=== PATIENT | female | born 1935 | race Caucasian/White ===

== ENCOUNTER → 2023-05-30 14:25 | Outpatient (REF) | payer OTHER, SELFPAY | LOC: RAD 14:25 | PROVIDERS: ATTENDING PHYSICIAN Internal Medicine Hematology & Oncology; FAMILY PHYSICIAN Family Medicine | DX: C48.2 Malignant neoplasm of peritoneum, unspecified (principal); R22.43 Localized swelling, mass and lump, lower limb, bilateral | CPT/HCPCS: 71250; 74176 ==

== ENCOUNTER 2023-06-18 11:29 | Outpatient (RCR) | payer OTHER, SELFPAY ==
[2023-06-18 12:13] VITALS: BP 159/60
[2023-06-18 12:19] LABS: % Basophils 0.9 % (0-2); % Immature Granulocytes 0.4 % (0-0.5); % Lymphocytes 30.8 % (20.5-51.1); % Monocytes 8.3 % (1.7-9.3); % Neutrophils 55.6 % (42.2-75.2); Absolute Basophils 0.1 10^3/uL (0-0.2); Absolute Eosinophils 0.2 10^3/uL (0-0.7); Absolute Lymphocytes 1.6 10^3/uL (1.2-3.4); Absolute Monocytes 0.4 10^3/uL (0.1-0.6); Hematocrit 34.7 % (37.0-47.0); Hemoglobin 11.3 g/dL (12.0-16.0); Mean Corp Hgb Conc. 32.6 g/dL (33.0-37.0); Mean Corpuscular Hgb 32.3 pg (27.0-31.0); Mean Corpuscular Volume 99.1 fL (81.0-99.0); Mean Platelet Volume 9.9 fL (7.4-10.4); Nucleated Red Blood Cells % 0 %; Platelet Count 165 10^3/uL (130-400); Red Cell Dist. Width 13.2 % (11.5-14.5); White Blood Cell Count 5.3 10^3/uL (4.8-10.8)
[2023-06-18 12:46] LABS: ALT (SGPT) 20 U/L (0-35); AST (SGOT) 29 U/L (14-36); Albumin 3.3 g/dl (3.5-5.0); Alkaline Phosphatase 111 U/L (38-126); Blood Urea Nitrogen 22 mg/dl (7-17); Carbon Dioxide 25 mmol/L (22-30); Chloride 103 mmol/L (98-107); Glucose 89 mg/dl (70-99); Potassium 4.7 mmol/L (3.5-5.1); Sodium 132 mmol/L (135-145); Total Bilirubin 0.5 mg/dl (0.2-1.3); Total Protein 5.9 g/dl (6.3-8.2); eGFR 33.73
== END 2023-06-19 08:06 | disposition home or self-care (01) ==
LOC: OID 11:29
PROVIDERS: ATTENDING PHYSICIAN Internal Medicine Hematology & Oncology; FAMILY PHYSICIAN Family Medicine
DX: C48.2 Malignant neoplasm of peritoneum, unspecified (principal)
CPT/HCPCS: 36591; 80053; 85025

== ENCOUNTER 2023-08-13 10:41 | Outpatient (RCR) | payer OTHER, SELFPAY ==
[2023-08-13 11:00] VITALS: BP 122/60
[2023-08-13 12:00] LABS: % Basophils 0.8 % (0-2); % Eosinophils 5.6 % (0-6); % Immature Granulocytes 0.4 % (0-0.5); % Lymphocytes 26.3 % (20.5-51.1); % Monocytes 9.2 % (1.7-9.3); % Neutrophils 57.7 % (42.2-75.2); Absolute Eosinophils 0.3 10^3/uL (0-0.7); Absolute Lymphocytes 1.4 10^3/uL (1.2-3.4); Absolute Monocytes 0.5 10^3/uL (0.1-0.6); Absolute Neutrophils 3.1 10^3/uL (1.4-6.5); Hematocrit 33.2 % (37.0-47.0); Mean Corp Hgb Conc. 33.1 g/dL (33.0-37.0); Mean Corpuscular Hgb 31.9 pg (27.0-31.0); Mean Corpuscular Volume 96.2 fL (81.0-99.0); Mean Platelet Volume 10.3 fL (7.4-10.4); Nucleated Red Blood Cells % 0 %; Platelet Count 177 10^3/uL (130-400); Red Blood Cell Count 3.45 10^6/uL (4.20-5.40); Red Cell Dist. Width 12.1 % (11.5-14.5); White Blood Cell Count 5.3 10^3/uL (4.8-10.8)
[2023-08-13 12:17] LABS: ALT (SGPT) 13 U/L (0-35); AST (SGOT) 21 U/L (14-36); Albumin 3.3 g/dl (3.5-5.0); Alkaline Phosphatase 110 U/L (38-126); Blood Urea Nitrogen 23 mg/dl (7-17); Calcium 9.4 mg/dl (8.4-10.2); Carbon Dioxide 27 mmol/L (22-30); Chloride 98 mmol/L (98-107); Glucose 89 mg/dl (70-99); Potassium 4.3 mmol/L (3.5-5.1); Sodium 133 mmol/L (135-145); Total Bilirubin 0.3 mg/dl (0.2-1.3); Total Protein 5.9 g/dl (6.3-8.2); eGFR 19.19
[2023-08-13 20:58] LABS: CA 125 134 U/mL (0-35)
== END 2023-08-13 13:54 | disposition home or self-care (01) ==
LOC: OID 10:41
PROVIDERS: ATTENDING PHYSICIAN Internal Medicine Hematology & Oncology; FAMILY PHYSICIAN Family Medicine
DX: C48.2 Malignant neoplasm of peritoneum, unspecified (principal)
CPT/HCPCS: 36591; 80053; 85025; 86304

== ENCOUNTER → 2023-08-15 11:30 | Outpatient (REF) | payer OTHER, SELFPAY | LOC: RAD 11:30 | PROVIDERS: ATTENDING PHYSICIAN Internal Medicine Hematology & Oncology; FAMILY PHYSICIAN Family Medicine | DX: C48.2 Malignant neoplasm of peritoneum, unspecified (principal); R22.43 Localized swelling, mass and lump, lower limb, bilateral | CPT/HCPCS: 76775 ==

== ENCOUNTER → 2023-09-06 15:05 | Outpatient (REF) | payer OTHER, SELFPAY | LOC: RAD 15:05 | PROVIDERS: ATTENDING PHYSICIAN Surgery Vascular Surgery; FAMILY PHYSICIAN Family Medicine | DX: I73.9 Peripheral vascular disease, unspecified (principal) | CPT/HCPCS: 93922; 93925 ==

== ENCOUNTER 2023-09-26 10:39 | Outpatient (RCR) | payer OTHER, SELFPAY ==
[2023-09-26 11:00] VITALS: BP 129/55
[2023-09-26 11:57] LABS: Blood Urea Nitrogen 31 mg/dl (7-17); Calcium 9.6 mg/dl (8.4-10.2); Carbon Dioxide 26 mmol/L (22-30); Chloride 100 mmol/L (98-107); Glucose 90 mg/dl (70-99); Potassium 4.4 mmol/L (3.5-5.1); Sodium 134 mmol/L (135-145); eGFR 18.27
== END 2023-09-27 10:45 | disposition home or self-care (01) ==
LOC: OID 10:39
PROVIDERS: ATTENDING PHYSICIAN Internal Medicine Hematology & Oncology; FAMILY PHYSICIAN Family Medicine; OTHER PHYSICIAN Specialist
DX: C48.2 Malignant neoplasm of peritoneum, unspecified (principal)
CPT/HCPCS: 36591; 80048; 82565

== ENCOUNTER → 2023-10-23 14:08 | Outpatient (REF) | payer OTHER, SELFPAY | LOC: RAD 14:08 | PROVIDERS: ATTENDING PHYSICIAN Internal Medicine Hematology & Oncology; FAMILY PHYSICIAN Family Medicine | DX: C48.2 Malignant neoplasm of peritoneum, unspecified (principal); R22.43 Localized swelling, mass and lump, lower limb, bilateral | CPT/HCPCS: 71250; 74176 ==

== ENCOUNTER 2023-11-02 12:18 | Emergency (ER) | payer OTHER, SELFPAY ==
[2023-11-02 12:21] VITALS: BP 117/70
[2023-11-02 13:00] VITALS: BP 125/77
--- NOTE | 2023-11-02 13:09 | ED.GENMED ---
History of Present Illness
General
Chief Complaint: Abdominal Symptoms
Source: patient
Exam Limitations: none
Time Seen by Provider: 11/02/23 12:51
History of Present Illness
History of Present Illness:
88-year-old female presents with vomiting x 4 to 5 days. She denies significant abdominal pain. She cannot keep anything down. She is vomiting multiple times a day. She started to feel dehydrated. She has a history bowel obstruction requiring
resection. She has an ileostomy. She denies a fever or headache. No other complaints at this time
Past History
Past History
ED Past Medical History: Asthma, Cancer (ovarian), COPD, HTN and Other (UTI, Ureteral calculus)
ED Past Surgical History: Gynecological (BTL) and Orthopedic (right knee replacement.)
Social History
Tobacco: Former smoker
Alcohol: Occasional
Drug: None
Personal:
Living: with family
Phy Exam
Physical Exam
Physical Exam:
General: Well-appearing female no acute respiratory distress
HEENT: Normocephalic atraumatic mucosa dry posterior pharynx without erythema
Heart: Regular rate and rhythm no murmurs
Lungs: Clear no wheeze
Abdomen ostomy present with output in the bag. Mildly diffusely tender nondistended no guarding
Course
Orders/Labs/Results
Orders:
Orders
11/02/23 13:03
0.9% Sodium Chloride 1000 ml [Nss] 1,000 ml IV BOLUS
Ondansetron Injectable [Zofran] 4 mg IV NOW STA
11/02/23 13:08
CT Abd/pel Without Iv Or Oral Urgent
Comment:
Reason For Exam: vomiting
11/02/23 13:18
Complete Blood Count/With Diff Urgent
Comprehensive Metabolic Panel Urgent
Lipase Urgent
Abnormal Lab Results
11/02/23
13:18
RBC 3.60 L 10^6/uL
(4.20-5.40)
Hgb 11.3 L g/dL
(12.0-16.0)
Hct 34.3 L %
(37.0-47.0)
MCH 31.4 H pg
(27.0-31.0)
MCHC 32.9 L g/dL
(33.0-37.0)
MPV 10.6 H fL
(7.4-10.4)
Absolute Lymphs (auto) 1.1 L 10^3/uL
(1.2-3.4)
Lymphocytes % 19.0 L %
(20.5-51.1)
Sodium 129 L mmol/L
(135-145)
Chloride 96 L mmol/L
(98-107)
BUN 36 H mg/dl
(7-17)
Creatinine 2.7 H mg/dL
(0.6-1.0)
Total Protein 6.2 L g/dl
(6.3-8.2)
11/02/23 13:18
11/02/23 13:18
Vital Signs
Initial and Last Documented VS:
Initial Vital Signs
Temp Pulse Resp BP Pulse Ox
97.9 F 85 16 117/70 98
11/02/23 12:21 11/02/23 12:21 11/02/23 12:21 11/02/23 12:21 11/02/23 12:21
Last Documented Vital Signs
Temp Pulse Resp BP Pulse Ox
97.9 F 85 16 132/59 99
11/02/23 12:21 11/02/23 12:21 11/02/23 12:21 11/02/23 15:00 11/02/23 15:00
MDM/Problems Addressed
Differential Diagnosis Includes:
Vomiting x 4 days. Consider viral illness versus obstruction. Consider electrolyte abnormality.
Reviewed prior records. He was here a year ago and had hyponatremia. Will evaluate today for acute electrolyte abnormality secondary to the vomiting
Patient does have difficult surgical history of the abdomen puts her at risk for more bowel obstructions, CT of the abdomen pending
Will hydrate and treat with Zofran.
*Critical Care Note
Total Time (30-74mins, 75-104mins- exclusive of procedures): Not Applicable
Update Note
Update Note:
CT reviewed without any acute changes. There is a sightings in her abdomen this is chronic. There is a stable staghorn calculus in the right kidney. Patient not tolerating oral fluids. She does feel better after Zofran. Will send home on Zofran
for nausea.
ED Attending Note
-
Portions of this chart may have been created with voice recognition software.� Occasional wrong word or��sound alike� substitutions may have occurred due to the inherent limitations of voice recognition software.
Discharge Plan
Departure
Patient Disposition: Home (Routine Discharge)
Date of Disposition: 11/02/23
Time of Disposition: 16:29
Patient with high blood pressure during this ER visit?: No
Discharge Problem:
Vomiting
Instructions: Nausea and Vomiting, Adult (DC)
Prescriptions:
New
ondansetron 4 mg tablet,disintegrating
4 mg PO Q8H PRN (Reason: nausea and vomiting) Qty: 10 0RF
No Action
loperamide 2 MG capsule
2 mg PO QID PRN (Reason: Gastrointestinal issue)
Patient Comments:
ileostomy
Rx Instructions:
2 to 4 times a day
sodium bicarbonate 650 MG tablet
1,300 mg PO BID
cholecalciferol (vitamin D3) 2,000 UNITS tablet
2,000 units PO DAILY
multivitamin with folic acid [Tab-A-Jay] 1 TABLET tablet
1 tab PO QPM
loratadine 10 MG tablet
10 mg PO DAILY PRN (Reason: allergies)
acetaminophen [Tylenol Arthritis Pain] 650 MG tablet extended release
650 mg PO BID
prochlorperazine maleate 10 MG tablet
10 mg PO Q6H PRN (Reason: nausea/vomiting)
sodium chloride 1 GRAM tablet,soluble
0.5 g PO QID
doxycycline hyclate 200 mg Tablet,Delayed Release (Dr/Ec)
200 mg PO DAILY
pentoxifylline 400 mg Tablet Extended Release
400 mg PO TID
Probiotic 3 billion cell Capsule
3,000 mmu cells PO DAILY
Referrals:
Imani Orozco MD [Family Provider] -
Activity Restrictions/Additional Instructions:
Continue to drink plenty of fluids. Use Zofran if needed for nausea. Return if worse otherwise follow-up with your treating physicians
Interventions
Interventions:
*Risk Screen - Suicide Last Done: 11/02/23 12:21
*General Assessment Last Done: 11/02/23 12:21
*Neglect/Abuse Screening Last Done: 11/02/23 12:21
*ED COVID-19 Vaccine History Last Done: 11/02/23 12:38
PC-Dsghfh-Spmvnjkncj Assessment Last Done: 11/02/23 12:38
Discharge Date and Time
Print Language: KHMER
[2023-11-02] MEDS: ZOFRAN 4 MG IV (13:24)
[2023-11-02] MEDS: NSS 1000 IV (13:30)
[2023-11-02 13:34] LABS: % Basophils 0.5 % (0-2); % Eosinophils 0.7 % (0-6); % Immature Granulocytes 0.4 % (0-0.5); % Monocytes 8.7 % (1.7-9.3); % Neutrophils 70.7 % (42.2-75.2); Absolute Lymphocytes 1.1 10^3/uL (1.2-3.4); Absolute Monocytes 0.5 10^3/uL (0.1-0.6); Hematocrit 34.3 % (37.0-47.0); Hemoglobin 11.3 g/dL (12.0-16.0); Mean Corp Hgb Conc. 32.9 g/dL (33.0-37.0); Mean Corpuscular Hgb 31.4 pg (27.0-31.0); Mean Corpuscular Volume 95.3 fL (81.0-99.0); Mean Platelet Volume 10.6 fL (7.4-10.4); Nucleated Red Blood Cells % 0 %; Platelet Count 180 10^3/uL (130-400); Red Cell Dist. Width 13.3 % (11.5-14.5); White Blood Cell Count 5.6 10^3/uL (4.8-10.8)
[2023-11-02 13:53] LABS: ALT (SGPT) 11 U/L (0-35); AST (SGOT) 23 U/L (14-36); Albumin 3.7 g/dl (3.5-5.0); Alkaline Phosphatase 108 U/L (38-126); Blood Urea Nitrogen 36 mg/dl (7-17); Calcium 9.2 mg/dl (8.4-10.2); Carbon Dioxide 23 mmol/L (22-30); Chloride 96 mmol/L (98-107); Glucose 78 mg/dl (70-99); Lipase 78 U/L (23-300); Potassium 4.6 mmol/L (3.5-5.1); Sodium 129 mmol/L (135-145); Total Bilirubin 0.5 mg/dl (0.2-1.3); Total Protein 6.2 g/dl (6.3-8.2); eGFR 16.56
[2023-11-02 14:16] VITALS: BP 128/65
[2023-11-02 15:00] VITALS: BP 132/59
[2023-11-02 16:00] VITALS: BP 130/73
== END 2023-11-02 16:40 | disposition home or self-care (01) ==
LOC: EMR 12:18
PROVIDERS: Physician Assistant; EMERGENCY PHYSICIAN Emergency Medicine; FAMILY PHYSICIAN Family Medicine
DX: R11.10 Vomiting, unspecified (principal)
CPT/HCPCS: 99284; 96374; 96361 ×2; 74176; 80053; 83690; 85025

== ENCOUNTER 2023-11-12 15:45 | Inpatient (IN) | payer OTHER, SELFPAY ==
[2023-11-12 12:51] VITALS: BP 111/60
--- NOTE | 2023-11-12 13:35 | ED.GENMED ---
History of Present Illness
General
Chief Complaint: Weakness
Source: patient
Time Seen by Provider: 11/12/23 13:34
History of Present Illness
History of Present Illness:
This patient is an 88-year-old female presents emergency department with fatigue, malaise, and generally does not feeling well. Patient has a history of ovarian/peritoneal cancer, chronic metabolic acidosis, and has experienced SIADH associated
hyponatremia in the past. She states that for the past week or so she 'cannot keep anything down' described as intermittent episodes of nonbloody vomiting associated with hunger but just not wanting to eat. She notes ostomy output but less than
usual given her reduced intake. She denies fever, chills, chest pain, shortness of breath, urinary symptoms, abdominal pain, or other complaints
Past History
Past History
ED Past Medical History: Asthma, Cancer (ovarian), COPD, HTN and Other (UTI, Ureteral calculus)
ED Past Surgical History: Gynecological (BTL) and Orthopedic (right knee replacement.)
Social History
Tobacco: Former smoker
Alcohol: Occasional
Drug: None
Personal:
Living: with family
Phy Exam
Physical Exam
Physical Exam:
GENERAL: Alert , in no apparent distress, thin slightly tired appearing
EYE: pupils equal and reactive
NECK: Supple, no significant adenopathy.
ENT: o/p clr, mm dry
CARDIAC: Regular rate and rhythm .
LUNGS: Equal breath sounds bilaterally, no acute respiratory distress, no rales or rhonchi, occasional wheeze noted
ABDOMEN: Soft, without focal tenderness, no r/g, no cvat, ostomy output noted
NEUROLOGICAL: Alert and oriented, no focal neuro deficits
SKIN: Warm and dry, skin intact.
MUSCULOSKELETAL: 2+ bilateral lower extremity edema, well perfused.
PSYCH: Normal and appropriate interaction.
Course
Orders/Labs/Results
Orders:
Orders
11/12/23 13:55
CR Obstruct Series W/pa Chest Urgent
Comment:
Reason For Exam: vomiting, hx peritoneal ca
11/12/23 14:22
0.9% Sodium Chloride 250 ml [Nss] 250 ml IV BOLUS
11/12/23 14:24
ECG [Electrocardiogram (*1)] Stat
Reason for Study: Other
Other Reason for Exam: vomiting
EKG- Treatment ONCE
11/12/23 14:45
Cortisol, Random Stat
Serum Osmolality Urgent
TSH Urgent
11/12/23 Dinner
Regular
At Your Request: Full Participation
0.9% Sodium Chloride 1000 ml [Nss] 1,000 ml IV 100 mls/hr
11/12/23 15:22
ONCOLOGY CONSULT Routine
Consulting Provider: Kate Smith
Was physician already notified: Yes
Reason for consult: metastatic peritoneal carcinoma
11/12/23 15:31
Admit/Transfer Patient As Directed
Co-Sign Provider:
Level of Care: Inpatient admission
Assign to:: Medical/Surgical
Physician / Group: Cholo
Diagnosis: JESSICA, hyponatremia
Reason for Hospitalization: JESSICA, hyponatremia
Expected length of stay greater than two midnights?: Yes
ELOS- Estimated Length of Stay in days: 4
I certify the patient meets the requirements for IP care: Yes
11/12/23 15:33
Code Status As Directed
Resuscitation Status: Full Code
11/12/23 15:55
Osmolality, Random Urine Urgent
Date Specimen was Collected: 11/12/23
Time Specimen was Collected: 13:46
Urine Sodium Urgent
Date Specimen was Collected: 11/12/23
Time Specimen was Collected: 13:46
11/12/23 17:59
Acetaminophen [Tylenol] 650 mg PO Q4HPRN PRN
Bisacodyl [Dulcolax] 10 mg RECTAL [id number] PRN
Docusate W/Senna [Senokot-S] 1 tablet PO BIDPRN PRN
HYDROmorphone [Dilaudid] 0.5 mg IV Q4HPRN PRN
Loperamide [Imodium] 2 mg PO TID
Loratadine [Claritin] 10 mg PO DAILYPRN PRN
Ondansetron Injectable [Zofran] 4 mg IV Q6HPRN PRN
Oxycodone [Roxicodone] 5 mg PO Q4HPRN PRN
Pentoxifylline [Trental] 400 mg PO TID
Polyethylene Glycol Powder [Miralax] 17 grams PO DAILYPRN PRN
11/12/23 17:59
Activity As Directed
Activity Level: With Assistance
Intake/ Output As Directed
Frequency: Per unit guidelines
Vital Signs As Directed
Frequency: Per unit guidelines
Weight As Directed
Frequency: Daily
DX Deep Vein Thrombosis Video Routine
11/12/23 18:00
Multivitamin [Theragran] 1 tablet PO QPM
Sodium Chloride 0.5 gram PO QID
11/12/23 20:00
Heparin 5,000 units SC Q12
Sodium Bicarbonate 650 mg PO BID
11/13/23 00:00
Acetaminophen [Tylenol] 650 mg PO Q6
11/13/23 06:18
Basic Metabolic Panel IN AM
11/13/23 08:00
Cholecalciferol (Vitamin D3) [VITAMIN D3 (cholecalciferol)] 25 mcg PO DAILY
Lactobac/Bifidobac [Visbiome] 1 cap PO DAILY
Vital Signs
Initial and Last Documented VS:
Initial Vital Signs
Temp Pulse Resp BP Pulse Ox
97.1 F 75 19 111/60 98
11/12/23 12:51 11/12/23 12:51 11/12/23 12:51 11/12/23 12:51 11/12/23 12:51
Last Documented Vital Signs
Temp Pulse Resp BP Pulse Ox
98 F 76 18 138/66 100
11/15/23 15:23 11/15/23 15:23 11/15/23 15:23 11/15/23 15:23 11/15/23 15:23
*Critical Care Note
Total Time (30-74mins, 75-104mins- exclusive of procedures): Not Applicable
Update Note
Update Note:
Patient presents to the Emergency Department with fatigue, malaise, vomiting
Number and Complexity of Problems Addressed at the Encounter
� Chronic conditions affecting care:
� Acute Exacerbation and/or Progression of Chronic Illness:
� Differential Diagnosis includes: But not limited to dehydration, bowel obstruction, progression of cancer, electrolyte disorder, viral illness, etc. etc.
Amount and/or Complexity of Data to be Reviewed and Analyzed
� I performed an independent evaluation of and my interpretation is:
EKG:
CT:
Xrays:
Laboratory Studies: Sodium noted to be reduced at 127, was 129 last testing and then 133 before that. Increasing renal dysfunction suspect prerenal component with BUN/creatinine 44 and 3 anemia at baseline urine sodium and Osmo
pending
Other:
� Review of other/old records reveals: Progression of peritoneal carcinomatosis characterized by increasing ascites and a large intraperitoneal metastatic deposits.
Stable severe bilateral hydronephrosis. Stable right staghorn calculus.
Electronically signed by Nahum Cobian, 11/02/2023 2:12 PM
� Clinical information was obtained by an independent historian:tt call in by Arielle Barrett: Millicent Lucia 1935 history of metastatic primary peritoneal carcinoma
Last seen in ER 11/01 with intractable nausea/vomiting. CT abdomen/pelvis done with slight progression of disease. Fluids and zofran given then discharged.
Seen in [facility] today for labs with worsening symptoms. Taking zofran. Very weak and unstable. Lives alone. Hypotensive 97/51 and HR 69. Weight loss of 5-7lbs since 11/01.
CBC, CMP drawn results pending.
� Prescriptions/Medications Considered but not given:
� Further testing considered but not performed:
Risk of Complications and/or Morbidity or Mortality of Patient Management
� Social determinants of health affecting care:
� Discussion with other providers (PCP, Hospitalists, Consultants, etc):
� Escalation of care including admission/observation vs risk of discharge considered: Case discussed with nephrology, Dr. levi, aware of history, labs, prior history of SIADH with hypovolemia� Recommends normal saline for now.
Aware patient will be admitted.
ED Attending Note
-
Portions of this chart may have been created with voice recognition software.� Occasional wrong word or��sound alike� substitutions may have occurred due to the inherent limitations of voice recognition software.
Discharge Plan
Departure
Patient Disposition: Admit
Date of Disposition: 11/12/23
Time of Disposition: 14:26
Admit to: Telemetry
Presentation/result/management discussed w/ accepting MD/DO: Hospitalist
Condition: Fair
Discharge Problem:
Acute hyponatremia
Interventions
Interventions:
*Risk Screen - Suicide Last Done: 11/12/23 12:51
*General Assessment Last Done: 11/12/23 12:51
*Neglect/Abuse Screening Last Done: 11/12/23 12:51
ED- Fall Risk Assessment Last Done: 11/12/23 15:59
*ED COVID-19 Vaccine History Last Done: 11/12/23 18:27
*Nursing Disposition Last Done: 11/12/23 18:02
ED- Cardiac Assessment Last Done: 11/12/23 15:59
ED- Neurological Assessment Last Done: 11/12/23 15:59
ED- Pulmonary Assessment Last Done: 11/12/23 15:59
Discharge Date and Time
Discharge Date/Time: 11/12/23 18:02
[2023-11-12] MEDS: NSS 250 IV (14:48)
[2023-11-12 14:50] VITALS: BP 133/79
[2023-11-12 14:56] VITALS: BMI 22.0
[2023-11-12 15:00] VITALS: BP 129/64
--- NOTE | 2023-11-12 15:01 | HPS.HSE ---
Addendum entered and electronically signed by Galo Emmanuel MD 11/12/23 15:39:
Severe protein calorie malnutrition
Serum Osmo normal at 285. Urine osmolality and urine sodium are pending.
Original Note:
Family Physician
-
Family Physician: Imani Orozoc
Chief Complaint
-
Weakness
History of Present Illness
88 y/o F with PMHx:
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
Interstitial fibrosis
Osteoarthritis
Coronary artery disease
Metastatic primary peritoneal carcinoma
who p/w CC weakness. Patient was in the outpatient infusion center today for evaluation. She reported that she has had nearly a week of nausea and vomiting. She has been unable to eat or keep anything down. Denies any hematemesis or
coffee-ground emesis. Reports weight loss of 5 to 7 pounds over the last 10 days. Reports occasional abdominal discomfort. Denies chest pain, shortness of breath, dysuria, focal neurological deficit. She offers no other acute complaints.
Medical History
Past Medical History
Past Medical History: Reports Other (as per HPI)
Past Surgical History: Reports Other (N/A)
Social History
Tobacco: Former Smoker
Alcohol: Occasional
Drug: None
Family History
Family History: Not pertinent
Allergies / Home Medications
Allergies reflects when Allergies were last updated in [facility].
Home Medications with original date entered in [facility]
Allergy/Medication List:
Allergies
Allergy/AdvReac Type Severity Reaction Status Date / Time
adhesive Allergy Itching Verified 11/12/23 12:56
aspirin Allergy Anaphylaxis Verified 11/12/23 12:56
Iodinated Contrast Media Allergy CAUSED Verified 11/12/23 12:56
RENAL
INSUFFICIENCY
pollen extracts Allergy Shortness Verified 11/12/23 12:56
of Breath
sulfamethoxazole Allergy Nausea / Verified 11/12/23 12:56
Vomiting
Home Medications
loperamide 2 mg capsule 2 mg PO TID 10/12/19
sodium bicarbonate 650 mg tablet 650 mg PO BID Electrolyte Repletion 12/19/19
cholecalciferol (vitamin D3) 50 mcg (2,000 unit) tablet 1,000 units PO DAILY Supplement 03/23/20
multivitamin with folic acid 400 mcg tablet (Tab-A-Jay) 1 tab PO QPM Supplement 03/23/20
loratadine 10 mg tablet 10 mg PO DAILYPRN PRN allergies 11/02/20
acetaminophen 650 mg tablet,extended release (Tylenol Arthritis Pain) 650 mg PO BID 03/22/21
sodium chloride 1,000 mg soluble tablet 0.5 g PO QID 10/04/21
lactobacillus combination no.4 3 billion cell capsule (Probiotic) 3,000 mmu cells PO DAILY 08/13/23
pentoxifylline 400 mg tablet,extended release 400 mg PO TID 08/13/23
ondansetron 4 mg disintegrating tablet 4 mg PO Q8HPRN PRN nausea and vomiting 11/12/23
Review of Systems
-
History Source: Patient
A 12 point ROS was completed and negative except as noted: Yes
Physical Exam
Vital Signs
Vital Signs
Temp Pulse Resp BP Pulse Ox
97.1 F 75 19 111/60 98
11/12/23 12:51 11/12/23 12:51 11/12/23 12:51 11/12/23 12:51 11/12/23 12:51
Physical Exam
General: Other (.)
Impression/Plan
-
Gen: NAD, AAOx3, appears chronically ill malnourished.
Eyes: EOMI, PERRLA, no scleral icterus.
Neck: supple.
CV: RRR, +S1/S2, no m/r/g.
Resp: CTAB, no rales, wheezes, or rhonchi.
Abd: +BS, soft, NT, ND
Skin: No rashes.
Neuro: CN 2-12 intact, non-focal.
Psych: Normal mood and affect.
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
-with acute on chronic hyponatremia due to SIADH as well as prerenal azotemia/volume depletion
-baseline Cr 2.4-2.7
-NS @ 100cc/hr
-trend Cr/Na
Metastatic ovarian cancer with peritoneal carcinomatosis:
-recent CT A/P with progression of disease
-currently not on cancer directed therapy
-pt was to meet with oncology to discuss goals of care 11/13/23
Other, inactive problems:
Interstitial fibrosis
Osteoarthritis
Coronary artery disease
FULL code - confirmed with the pt in the ER
Heparin
[2023-11-12 15:14] LABS: Osmolality Serum 285 mOsm/kg (275-300)
[2023-11-12 15:52] LABS: Cortisol, Random 15.2 ug/dl; TSH 1.81 uIU/ml (0.47-4.68)
[2023-11-12 16:03] LABS: Osmolality Urine 426 mOsm/kg (300-900)
[2023-11-12 16:36] LABS: Urine Sodium < 5 mmol/L (30-90)
[2023-11-12 17:00] VITALS: BP 127/69
[2023-11-12] MEDS: NSS 1000 IV (17:18)
[2023-11-12] MEDS: FLUSH (NSS) 1 FLUSH IV (17:19)
[2023-11-12 18:18] VITALS: BP 128/68
[2023-11-12 18:20] VITALS: BMI 21.5
[2023-11-12] MEDS: TRENTAL 400 MG PO ×2 (18:24→21:59)
[2023-11-12] MEDS: IMODIUM 2 MG PO ×2 (18:24→21:59)
[2023-11-12] MEDS: THERAGRAN 1 TABLET PO (18:24)
[2023-11-12] MEDS: SODIUM CHLORIDE 0.5 GRAM PO ×2 (18:34→22:03)
--- NOTE | 2023-11-12 18:38 | PTCARENOTE ---
pt presents from ED via stretcher. pt is AAO*3, Vss, room air. pt denies any pain. pt c/o nausea no active vomiting. pt states she hasn't had anything to eat. pt is oriented to the room. call reyes within the reach. plan of care ongoing.
[2023-11-12] MEDS: HEPARIN 5000 UNITS SC (19:47)
[2023-11-12] MEDS: SODIUM BICARBONATE 650 MG PO (19:47)
[2023-11-12] MEDS: ZOFRAN 4 MG IV (19:59)
[2023-11-12] MEDS: FLUSH (NSS) 2 FLUSH IV (20:00)
[2023-11-12 23:03] VITALS: BP 146/67
[2023-11-13] MEDS: NSS 1000 IV ×3 (01:53→22:00)
[2023-11-13] MEDS: ANESTHETIC LOZENGE 1 LOZENGE PO (02:35)
[2023-11-13] MEDS: ZOFRAN 4 MG IV ×2 (04:06→15:16)
[2023-11-13] MEDS: FLUSH (NSS) 2 FLUSH IV (04:08)
[2023-11-13 06:00] VITALS: BMI 21.9
[2023-11-13 06:52] LABS: Blood Urea Nitrogen 41 mg/dl (7-17); Calcium 8.9 mg/dl (8.4-10.2); Carbon Dioxide 20 mmol/L (22-30); Chloride 100 mmol/L (98-107); Estimated Creatinine Clearance 12 ml/min; Glucose 74 mg/dl (70-99); Potassium 4.2 mmol/L (3.5-5.1); Sodium 129 mmol/L (135-145); eGFR 15.85
[2023-11-13 07:00] VITALS: BP 123/62
[2023-11-13] MEDS: IMODIUM 2 MG PO (08:23)
[2023-11-13] MEDS: VITAMIN D3 (cholecalciferol) 25 MCG PO (08:24)
[2023-11-13] MEDS: TRENTAL 400 MG PO (08:24)
[2023-11-13] MEDS: SODIUM BICARBONATE 650 MG PO (08:24)
[2023-11-13] MEDS: SODIUM CHLORIDE 0.5 GRAM PO (08:24)
[2023-11-13] MEDS: VISBIOME 1 CAP PO (08:25)
[2023-11-13] MEDS: HEPARIN 5000 UNITS SC ×2 (08:26→19:53)
--- NOTE | 2023-11-13 11:08 | W.PN.HOSP.TC ---
Today's Communication/Plan
-
see A/P
Assessment / Plan
Assessment / Plan
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
Patient was in the outpatient infusion center for evaluation. She reported that she has had nearly a week of nausea and vomiting. She has been unable to eat or keep anything down. Denies any hematemesis or coffee-ground emesis. Reports weight
loss of 5 to 7 pounds over the last 10 days. Reports occasional abdominal discomfort. Denies chest pain, shortness of breath, dysuria, focal neurological deficit. She offers no other acute complaints.
A/P
# N/V, loss of appetite, poor PO intake likely due to clinical deconditioning from metastatic ovarian cancer with peritoneal carcinomatosis:
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
# Acute on chronic hyponatremia due to SIADH as well as prerenal azotemia/volume depletion
SCr today at 2.8 from 3.1 on admission ; baseline Cr 2.4-2.7
Sodium level 129 today from 127 on admission
Cont NSS @ 100cc/hr
trend Cr/Na
Cont regular as tolerated
# Metastatic ovarian cancer with peritoneal carcinomatosis:
recent CT A/P with progression of disease
currently not on cancer directed therapy
pt was to meet with oncology to discuss goals of care 11/13/23
Onc consulted, [facility] discussion ongoing
Other, inactive problems:
Interstitial fibrosis
Osteoarthritis
Coronary artery disease
FULL code - confirmed with the pt in the ER
Heparin
Anticipated Discharge: 24 - 48 hours
Subjective/Interval History
-
Date of Service: November 13, 2023
Objective Data
-
Labs:
Laboratory Results
11/13/23
06:18
Sodium 129 L
Potassium 4.2
Chloride 100
Carbon Dioxide 20 L
BUN 41 H
Creatinine 2.8 H
Glucose 74
Calcium 8.9
Vital Signs:
Vital Signs
Temp Pulse Resp BP Pulse Ox
36.4 C 79 16 123/62 98
11/13/23 07:00 11/13/23 07:00 11/13/23 07:00 11/13/23 07:00 11/13/23 07:00
I&O
11/12/23 11/13/23 11/14/23
06:59 06:59 06:59
Intake Total 1500 / 1500
Output Total 235 / 235
Balance 1265 / 1265
Review of Systems
-
Abdomen/GI: Reports Nausea and Vomiting
Physical Exam
-
General: Well Developed, No Apparent Distress, Comfortable and Appears Chronically Ill
Respiratory: Clear to Auscultation and Non Labored Respirations; Negative Accessory Resp Muscle Use
Cardiac: Regular Rhythm and S1/S2; Negative Murmur or Rub
GI: Soft, Nontender, Nondistended and Normal Bowel Sounds
Rectal: Deferred by Provider
Neuro: Awake and Alert
Psych: Calm and Intact Judgement/Insight
Data Reviewed
-
Labs: Labs Reviewed by me
--- NOTE | 2023-11-13 12:02 | CON.ONC ---
Impression
Impression
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
nausea, poor po intake
weakness
hyponatremia
Plan
Plan
Discussed recent (10/22/23, 11/02/23) CT findings c/w disease progression, which most likely explains her symptoms
Agree w/ antiemetics, diet as tolerated
Discussed goals of care, she's unsure she would consider any further chemo, but would like to discuss options with Dr. Grande
Will follow along
Patient History
History of Present Illness
Millicent is an 88 yo w/ h/o primary peritoneal carcinoma, known to Dr Grande. She received chemo last in summer 2022, and has been on observation since then. She underwent restaging CT scans on 10/23/23, which showed disease progression, and she was
scheduled to see Dr. Grande next week in f/u. She was seen in the ER on 11/01 w/ vomiting, repeat scans showed further disease progression. She was given Zofran and sent home. She was seen yesterday in [facility] for port flush, was weak and with continued
poor po intake, weight loss, nausea, and was sent to the ER, then admitted. Plain films showed no obstruction, labs noted for hyponatremia, creatinine of 3.1.
She denies abd pain or change in ostomy output
Past-Medical/Surgical History
PMH/PSH - as per the hpi, colon resection related to cancer, with ileotomy, COPD
SH: lives alone in a house, family/friends nearby, has an aide weekly, former smoker
FH: N/C
Patient Medication
�Medication �Instructions �Recorded �Confirmed �Last Taken �Type
loperamide 2 mg capsule 2 mg PO TID Gastrointestinal Issue 10/12/19 11/12/23 09/26/23 History
sodium bicarbonate 650 mg tablet 650 mg PO BID Electrolyte Repletion 12/19/19 11/12/23 11/12/23 History
cholecalciferol (vitamin D3) 50 1,000 units PO DAILY Supplement 03/23/20 11/12/23 09/26/23 History
mcg (2,000 unit) tablet
multivitamin with folic acid 400 1 tab PO QPM Supplement 03/23/20 11/12/23 09/25/23 History
mcg tablet (Tab-A-Jay)
loratadine 10 mg tablet 10 mg PO DAILYPRN PRN allergies 11/02/20 11/12/23 09/26/23 History
acetaminophen 650 mg 650 mg PO BID Pain 03/22/21 11/12/23 09/26/23 History
tablet,extended release (Tylenol
Arthritis Pain)
sodium chloride 1,000 mg soluble 0.5 g PO QID Electrolyte Repletion 10/04/21 11/12/23 11/12/23 History
tablet
lactobacillus combination no.4 3 3,000 mmu cells PO DAILY 08/13/23 11/12/23 09/26/23 History
billion cell capsule (Probiotic)
pentoxifylline 400 mg 400 mg PO TID 08/13/23 11/12/23 09/26/23 History
tablet,extended release
ondansetron 4 mg disintegrating 4 mg PO Q8HPRN PRN nausea and 11/12/23 11/12/23 Unknown History
tablet vomiting
Active Medications
Generic Name Dose Route Start Last Admin
Trade Name Freq PRN Reason Stop Dose Admin
Acetaminophen 650 mg 11/13/23 00:00 11/13/23 05:30
Acetaminophen 325 Mg Tablet PO 12/11/23 00:00 Not Given
Q6 SARAH BETH
Acetaminophen 650 mg 11/12/23 17:59
Acetaminophen 325 Mg Tablet PO 12/10/23 17:58
Q4HPRN PRN
mild pain/BENJAMIN/temp> 100.4F
Benzocaine/Menthol 1 lozenge 11/13/23 02:09 11/13/23 02:35
Benzocaine/Menthol Lozenge PO 12/11/23 02:08 1 lozenge
Q4HPRN PRN Administration
sore throat
Bisacodyl 10 mg 11/12/23 17:59
Bisacodyl 10 Mg Rectal Suppository RECTAL 12/10/23 17:58
[id number] PRN
constipation
Cholecalciferol 25 mcg 11/13/23 08:00 11/13/23 08:24
Cholecalciferol (Vitamin D3) 25 Mcg Tablet (1,000 Units) PO 12/11/23 07:59 25 mcg
DAILY SARAH BETH Administration
Heparin Sodium 5,000 units 11/12/23 20:00 11/13/23 08:26
Heparin 5,000 Units/Ml 1 Ml Vial SC 12/10/23 19:59 5,000 units
Q12 SARAH BETH Administration
Hydromorphone HCl 0.5 mg 11/12/23 17:59
Hydromorphone 0.5 Mg/0.5 Ml Syringe IV 11/26/23 17:58
Q4HPRN PRN
severe pain
Sodium Chloride 1,000 mls @ 100 mls/hr 11/12/23 15:00 11/13/23 01:53
Nss IV 1,000 mls
.Q10H SARAH BETH Administration
Lactobacillus/Bifidobacterium 1 cap 11/13/23 08:00 11/13/23 08:25
Lactobac/Bifidobac (Visbiome) PO 12/11/23 07:59 1 cap
DAILY SARAH BETH Administration
Loperamide HCl 2 mg 11/12/23 17:59 11/13/23 08:23
Loperamide 2 Mg Capsule PO 12/10/23 17:58 2 mg
TID SARAH BETH Administration
Loratadine 10 mg 11/12/23 17:59
Loratadine 10 Mg Tablet PO 12/10/23 17:58
DAILYPRN PRN
allergies
Multivitamins Therapeutic 1 tablet 11/12/23 18:00 11/12/23 18:24
Multivitamin Tablet PO 12/10/23 17:59 1 tablet
QPM SARAH BETH Administration
Ondansetron HCl 4 mg 11/12/23 17:59 11/13/23 04:06
Ondansetron 4 Mg/2 Ml Vial IV 12/10/23 17:58 4 mg
Q6HPRN PRN Administration
nausea and vomiting
Oxycodone HCl 5 mg 11/12/23 17:59
Oxycodone 5 Mg Regular Release Tablet PO 11/26/23 17:58
Q4HPRN PRN
moderate pain
Pentoxifylline 400 mg 11/12/23 17:59 11/13/23 08:24
Pentoxifylline 400 Mg Tablet PO 12/10/23 17:58 400 mg
TID SARAH BETH Administration
Polyethylene Glycol 17 grams 11/12/23 17:59
Polyethylene Glycol Powder 17 Grams Packet PO 12/10/23 17:58
DAILYPRN PRN
constipation
Senna/Docusate Sodium 1 tablet 11/12/23 17:59
Docusate W/Senna (Aishwarya-Colace) Tablet PO 12/10/23 17:58
BIDPRN PRN
constipation
Sodium Bicarbonate 650 mg 11/12/23 20:00 11/13/23 08:24
Sodium Bicarbonate 650 Mg Tablet PO 12/10/23 19:59 650 mg
BID SARAH BETH Administration
Sodium Chloride 0 flush 11/12/23 17:00 11/13/23 04:08
Sodium Chloride 0.9% (Flush) Syringe IV 12/10/23 16:59 2 flush
PER PROTOCOL SARAH BETH Administration
Sodium Chloride 0.5 gram 11/12/23 18:00 11/13/23 08:24
Sodium Chloride 1 Gram Tablet PO 12/10/23 17:59 0.5 gram
QID SARAH BETH Administration
Review of Systems
-
History Source: Patient
All Other Systems: Not reviewed unless documented
Constitutional: Reports Weight Loss
Physical Exam
-
General: No Apparent Distress and Conversant; Negative Well Developed or Well Nourished
HEENT: Negative Jaundice
Cardiology: Normal Sinus Rhythm
Pulmonary: Clear
GI: Soft, Distended and Other (ileostomy)
Musculoskeletal: No Clubbing and No Cyanosis
Extremities: Edema (trace, ankle)
Neurology: Non Focal
Skin: Warm and Dry
Psych: Calm and Intact Judgement/Insight
Labs
Lab Results
Creatinine 2.8 mg/dL (0.6-1.0) H 11/13/23 06:18
Vital Signs
Vital Signs
Temp Pulse Resp BP Pulse Ox
97.6 F 79 16 123/62 98
11/13/23 07:00 11/13/23 07:00 11/13/23 07:00 11/13/23 07:00 11/13/23 07:00
[2023-11-13 15:05] VITALS: BP 113/49
[2023-11-13] MEDS: SODIUM CHLORIDE PO (15:35)
--- NOTE | 2023-11-13 16:18 | CM ---
Alert awake oriented patient who lives alone in a 1 story home with 3 step to enter and bed and bathroom on first floor. She is independent in all activities of daily living.She does not drive .She was offered VN she said she may want Hospice.No
hospice cx ordered..
[facility] hx / No SNF history
Pharmacy [facility] [address]
PCP DR Graves
PLAN Will need to follow course of care
[2023-11-13] MEDS: TRENTAL PO ×2 (16:27→22:00)
[2023-11-13] MEDS: IMODIUM PO (16:28)
[2023-11-13 23:02] VITALS: BP 136/71
--- NOTE | 2023-11-14 02:58 | DOWNTIME ---
There was a [employer] Client Acid Supervisor Downtime on 11/14/2023 from 0100 to 11/14/2023 at 0255. Downtime documentation of patient's care, including medication administrations, has been reconciled in the electronic record per guidelines. Refer to the
patient's paper chart under the miscellaneous tab to see printed paper medication records and downtime forms.
[2023-11-14] MEDS: ZOFRAN 4 MG IV ×2 (04:38→16:40)
[2023-11-14 06:00] VITALS: BMI 22.8
[2023-11-14 06:10] LABS: Hematocrit 32.1 % (37.0-47.0); Mean Corp Hgb Conc. 34.3 g/dL (33.0-37.0); Mean Corpuscular Hgb 31.3 pg (27.0-31.0); Mean Corpuscular Volume 91.5 fL (81.0-99.0); Platelet Count 162 10^3/uL (130-400); Red Blood Cell Count 3.51 10^6/uL (4.20-5.40); Red Cell Dist. Width 13.6 % (11.5-14.5); White Blood Cell Count 4.2 10^3/uL (4.8-10.8)
[2023-11-14 06:40] LABS: Blood Urea Nitrogen 36 mg/dl (7-17); Calcium 8.8 mg/dl (8.4-10.2); Carbon Dioxide 17 mmol/L (22-30); Chloride 103 mmol/L (98-107); Estimated Creatinine Clearance 13 ml/min; Glucose 76 mg/dl (70-99); Magnesium 1.7 mg/dl (1.6-2.3); Potassium 4.2 mmol/L (3.5-5.1); Sodium 131 mmol/L (135-145); eGFR 18.16
[2023-11-14 07:22] VITALS: BP 131/102
[2023-11-14] MEDS: NSS 1000 IV (08:29)
[2023-11-14] MEDS: HEPARIN 5000 UNITS SC ×2 (08:29→20:52)
[2023-11-14] MEDS: TRENTAL 400 MG PO (08:30)
--- NOTE | 2023-11-14 09:17 | W.PN.HOSP.TC ---
Today's Communication/Plan
-
see AP
GOC/hospice discission ongoing
Assessment / Plan
Assessment / Plan
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
Patient was in the outpatient infusion center for evaluation. She reported that she has had nearly a week of nausea and vomiting. She has been unable to eat or keep anything down. Denies any hematemesis or coffee-ground emesis. Reports weight
loss of 5 to 7 pounds over the last 10 days. Reports occasional abdominal discomfort. Denies chest pain, shortness of breath, dysuria, focal neurological deficit. She offers no other acute complaints.
A/P
# N/V, loss of appetite, poor PO intake likely due to clinical deconditioning from metastatic ovarian cancer with peritoneal carcinomatosis:
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
# Acute on chronic hyponatremia due to SIADH as well as prerenal azotemia/volume depletion
SCr today at 2.5 from 3.1 on admission; baseline Cr 2.4 - 2.7
Sodium level 131 today from 127 on admission
DC further IVF
trend Cr/Na
Cont regular as tolerated
# Metastatic ovarian cancer with peritoneal carcinomatosis:
recent CT A/P with progression of disease
currently not on cancer directed therapy
Onc on board
I discussed GOC with family. Jose Mackey would like to discuss hospice care and receive additional information.
Hospice CS placed
Other, inactive problems:
Interstitial fibrosis
Osteoarthritis
Coronary artery disease
code: DNR DNI, confirmed with son
DVT ppx: Heparin SQ
DW son Narendra on the phone
Anticipated Discharge: 24 - 48 hours
Subjective/Interval History
-
Date of Service: November 14, 2023
Objective Data
-
Labs:
Laboratory Results
11/14/23
05:59
WBC 4.2 L
Hgb 11.0 L
Hct 32.1 L
Plt Count 162
Sodium 131 L
Potassium 4.2
Chloride 103
Carbon Dioxide 17 L
BUN 36 H
Creatinine 2.5 H
Glucose 76
Calcium 8.8
Vital Signs:
Vital Signs
Temp Pulse Resp BP Pulse Ox
37.9 C 78 20 131/102 98
11/14/23 07:22 11/14/23 07:22 11/14/23 07:22 11/14/23 07:22 11/14/23 07:22
I&O
11/13/23 11/14/23 11/15/23
06:59 06:59 06:59
Intake Total 1500 / 1500 240 / 240
Output Total 235 / 235
Balance 1265 / 1265 240 / 240
Review of Systems
-
Unable to obtain full review of systems at this time due to: Other (forgetful)
Physical Exam
-
General: Well Developed, No Apparent Distress, Comfortable, Conversant and Appears Chronically Ill
Respiratory: Clear to Auscultation and Non Labored Respirations; Negative Accessory Resp Muscle Use
Cardiac: Regular Rhythm and S1/S2; Negative Murmur or Rub
GI: Soft and Nontender
Rectal: Deferred by Provider
Neuro: Awake and Alert
Psych: Calm; Negative Intact Judgement/Insight
Data Reviewed
-
Labs: Labs Reviewed by me
--- NOTE | 2023-11-14 09:22 | W.PN.ONC2 ---
Today's Communication / Plan
-
DNR and hospice evaluation for home hospice.
Impression
Impression
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
nausea, poor po intake
weakness
hyponatremia
Plan
Plan
Discussed recent (10/22/23, 11/02/23) CT findings c/w disease progression, which most likely explains her symptoms
Discussed goals of care, she primarily wants to go home and does not wish further chemotherapy.
She is DNR and wants to meet with hospice.
Subjective/Objective
Chief Complaint
ACS Heme Onc
Subjective
She continues with nausea and vomiting. She has been unable to eat or keep anything down. Her main desire is to get home. Really not interested in more chemotherapy.
Vital Signs:
Vital Signs
Temp Pulse Resp BP Pulse Ox
100.2 F 78 20 131/102 98
11/14/23 07:22 11/14/23 07:22 11/14/23 07:22 11/14/23 07:22 11/14/23 07:22
Lab Results:
Laboratory Data
WBC 4.2 10^3/uL (4.8-10.8) L 11/14/23 05:59
Hgb 11.0 g/dL (12.0-16.0) L 11/14/23 05:59
Plt Count 162 10^3/uL (130-400) 11/14/23 05:59
eGFR 18.16 11/14/23 05:59
Physical Exam
HEENT: No Jaundice
Cardiology: S1 and S2
Pulmonary: Clear
Neuro: Non Focal
--- NOTE | 2023-11-14 10:35 | CM ---
Pt lives alone . Has a supportive brother Narendra [phone].
wrote for hospice cx.
Pt requested Hospice .
Spoke with [facility] aware to speak with pt and family.
Referral placed in care port.
PLAN Wait for Hospice eval
--- NOTE | 2023-11-14 11:30 | HOSPNOTE ---
Addendum entered by Luna Kolb RN 11/15/23 14:06:
The plan is for patient to be discharged on Thursday 11/16. Equipment will be ordered and delivered tomorrow, care givers will be needed and can start on Sunday. Once patient is home we will admit onto our services. OOH DNR will be needed on chart
and transport will be needed. Updated case management.
Addendum entered by Luna Kolb RN 11/14/23 11:50:
Spoke with son Narendra and discussed hospice and the philosophy. Narendra would like to speak with his mom and will need to make arrangements for care at home. Narendra's of cancer so he was emotional and just needs a day to accept this information. Narendra
will call me tomorrow.
Original Note:
Referral received and will reach out to son Narendra and discuss hospice and the philosophy. More information to follow.
[2023-11-14 15:24] VITALS: BP 109/62
[2023-11-14 15:26] VITALS: BP 131/63
[2023-11-14] MEDS: TRENTAL PO ×3 (16:37→21:11)
[2023-11-14] MEDS: ANESTHETIC LOZENGE 1 LOZENGE PO (21:14)
[2023-11-14 23:24] VITALS: BP 121/71
[2023-11-15 04:48] LABS: Hemoglobin 11.1 g/dL (12.0-16.0); Mean Corp Hgb Conc. 33.6 g/dL (33.0-37.0); Mean Corpuscular Hgb 31.4 pg (27.0-31.0); Mean Corpuscular Volume 93.5 fL (81.0-99.0); Mean Platelet Volume 10.5 fL (7.4-10.4); Platelet Count 155 10^3/uL (130-400); Red Blood Cell Count 3.53 10^6/uL (4.20-5.40); Red Cell Dist. Width 13.6 % (11.5-14.5); White Blood Cell Count 4.8 10^3/uL (4.8-10.8)
[2023-11-15 05:09] LABS: Blood Urea Nitrogen 35 mg/dl (7-17); Calcium 9.1 mg/dl (8.4-10.2); Carbon Dioxide 17 mmol/L (22-30); Chloride 103 mmol/L (98-107); Estimated Creatinine Clearance 13 ml/min; Glucose 65 mg/dl (70-99); Magnesium 1.8 mg/dl (1.6-2.3); Potassium 4.4 mmol/L (3.5-5.1); Sodium 130 mmol/L (135-145); eGFR 18.16
[2023-11-15 07:23] VITALS: BP 138/66
[2023-11-15] MEDS: HEPARIN 5000 UNITS SC ×2 (09:00→19:40)
[2023-11-15] MEDS: TRENTAL PO ×3 (09:04→21:00)
[2023-11-15] MEDS: ZOFRAN 4 MG IV ×2 (09:05→21:22)
[2023-11-15 09:59] LABS: Glucose - Point of Care 72 mg/dl (70-99)
--- NOTE | 2023-11-15 10:16 | W.PN.ONC ---
Today's Communication / Plan
-
CT findings c/w disease progression reviewed
Patient is exhausted with treatment and has worsening performance status
Hospice appropriate
Oncology sign off
Impression
Impression
Primary peritoneal cancer, with progression by CT scans, rising CA125
Worsening performance status
Persistent hyponatremia
Subjective/Objective
Subjective/Objective
No new complaints, having early satiety.
Vital Signs:
Vital Signs
Temp Pulse Resp BP Pulse Ox
98 F 76 18 138/66 100
11/15/23 07:23 11/15/23 07:23 11/15/23 07:23 11/15/23 07:23 11/15/23 07:23
Lab Results:
Laboratory Data
WBC 4.8 10^3/uL (4.8-10.8) 11/15/23 04:26
Hgb 11.1 g/dL (12.0-16.0) L 11/15/23 04:26
Plt Count 155 10^3/uL (130-400) 11/15/23 04:26
eGFR 18.16 11/15/23 04:26
No scleral icterus
Lungs slightly decreased in the bases
Extremities without asymmetry
--- NOTE | 2023-11-15 14:47 | PN.CDI ---
CDI
- -
CDI:
Physician Documentation Request
Admit Date: 11/12/23 15:45
Dear Doctor Yoabny,
H&P stats metastatic primary peritoneal carcinoma.
Further down in same note and in hospitalist progress notes it states 'Metastatic ovarian cancer with peritoneal carcinomatosis'
Oncology note states 'Primary peritoneal cancer, with progression by CT scans..'
In an attempt to clarify potential conflicting documentation please clarify the primary cancer.
Peritoneal with mets to ovaries
Ovarian with mets to peritoneum
Other
Use of terms such as suspected, likely, concern for, or probable (associated with a specific diagnosis that is being evaluated, monitored, or treated as if it exists) are acceptable and can be coded in the inpatient setting, when documented at the
time of discharge.
Thank you,
Deneen Farias RN, BSN
CDI Specialist
tiger text
Please use your independent medical judgment in providing your response.
[2023-11-15 15:23] VITALS: BP 138/66
--- NOTE | 2023-11-15 15:24 | W.PN.HOSP.TC ---
Today's Communication/Plan
-
discharge planning for home hospice
Assessment / Plan
Assessment / Plan
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
Patient was in the outpatient infusion center for evaluation. She reported that she has had nearly a week of nausea and vomiting. She has been unable to eat or keep anything down. Denies any hematemesis or coffee-ground emesis. Reports weight
loss of 5 to 7 pounds over the last 10 days. Reports occasional abdominal discomfort. Denies chest pain, shortness of breath, dysuria, focal neurological deficit. She offers no other acute complaints.
A/P
# N/V, loss of appetite, poor PO intake likely due to clinical deconditioning from metastatic ovarian cancer with peritoneal carcinomatosis:
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
# Acute on chronic hyponatremia due to SIADH as well as prerenal azotemia/volume depletion
SCr today at 2.5 from 3.1 on admission; baseline Cr 2.4 - 2.7
Sodium level 131 today from 127 on admission
DC further IVF
Cont regular as tolerated
# Metastatic ovarian cancer with peritoneal carcinomatosis:
recent CT A/P with progression of disease
currently not on cancer directed therapy
Onc on board
# Hypoglycemia
- from poor oral intake
-check BG if symptomatic
Other, inactive problems:
Interstitial fibrosis
Osteoarthritis
Coronary artery disease
code: DNR DNI, confirmed with son
DVT ppx: Heparin SQ
Anticipated Discharge: 24 - 48 hours
Subjective/Interval History
-
Date of Service: November 15, 2023
poor apatite
no significant abd pain, have nausea
Objective Data
-
Labs:
Laboratory Results
11/15/23
04:26
WBC 4.8
Hgb 11.1 L
Hct 33.0 L
Plt Count 155
Sodium 130 L
Potassium 4.4
Chloride 103
Carbon Dioxide 17 L
BUN 35 H
Creatinine 2.5 H
Glucose 65 L
Calcium 9.1
Vital Signs:
Vital Signs
Temp Pulse Resp BP Pulse Ox
98 F 76 18 138/66 100
11/15/23 07:23 11/15/23 07:23 11/15/23 07:23 11/15/23 07:23 11/15/23 07:23
I&O
11/14/23 11/15/23 11/16/23
06:59 06:59 06:59
Intake Total 240 / 240 580 / 580
Output Total 150 / 150
Balance 240 / 240 430 / 430
Review of Systems
-
Respiratory: Reports No Symptoms
Cardiac: Reports No Symptoms
Abdomen/GI: Reports No Symptoms
Physical Exam
-
General: No Apparent Distress, Comfortable, Conversant and Appears Chronically Ill
Respiratory: Clear to Auscultation and Non Labored Respirations; Negative Accessory Resp Muscle Use
Cardiac: Regular Rhythm and S1/S2; Negative Murmur or Rub
GI: Soft and Nontender
Rectal: Deferred by Provider
Neuro: Awake and Alert
Psych: Calm; Negative Intact Judgement/Insight
--- NOTE | 2023-11-15 16:30 | CM ---
Spoke with son Narendra and pt at bedside.
Narendra was given certified social workers in health care list.
Pt will have Hospice in her home.
May need transportation set up .
Hospice to deliver equipment tomorrow. DC for Sunday.
IMM reviewed signed on chart.
PLAN Home with Hospice Sat
[2023-11-15] MEDS: ANESTHETIC LOZENGE 1 LOZENGE PO (20:03)
[2023-11-15 23:23] VITALS: BP 114/64
[2023-11-16 08:14] VITALS: BP 124/61
--- NOTE | 2023-11-16 08:53 | W.PN.HOSP.TC ---
Addendum entered and electronically signed by Cory Haywood MD 11/16/23 15:54:
Sev PCM
Pathology report in showing peritoneal carcinomatosis from m�llerian orign ~ presumed to be ovarian in nature
Original Note:
Today's Communication/Plan
-
see note
Assessment / Plan
Assessment / Plan
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
Patient was in the outpatient infusion center for evaluation. She reported that she has had nearly a week of nausea and vomiting. She has been unable to eat or keep anything down. Denies any hematemesis or coffee-ground emesis. Reports weight
loss of 5 to 7 pounds over the last 10 days. Reports occasional abdominal discomfort. Denies chest pain, shortness of breath, dysuria, focal neurological deficit. She offers no other acute complaints.
A/P
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
# Acute on chronic hyponatremia due to SIADH as well as prerenal azotemia/volume depletion
# N/V, loss of appetite, poor PO intake likely due to clinical deconditioning from metastatic ovarian cancer with peritoneal carcinomatosis:
SCr today at 2.5 from 3.1 on admission; baseline Cr 2.4 - 2.7
Sodium level 131 today from 127 on admission
DC further IVF
patient unable to tolerate much of oral intake/liquid, have some early satiety, will try reglan with simultaneous ongoing nausea
# Metastatic ovarian cancer with peritoneal carcinomatosis:
recent CT A/P with progression of disease
currently not on cancer directed therapy
Onc on board
# Hypoglycemia
-from poor oral intake
-check BG if symptomatic
Other, inactive problems:
Interstitial fibrosis
Osteoarthritis
Coronary artery disease
code: DNR DNI, confirmed with son
DVT ppx: Heparin SQ
Dispo planning for home hospice, possible discharge earliest tomorrow per CM
Anticipated Discharge: Within 24 hours
Subjective/Interval History
-
Date of Service: November 16, 2023
have early satiety and nausea. no vomiting
abd pain controlled with current regimen
no other acute issue s
Objective Data
-
Vital Signs:
Vital Signs
Temp Pulse Resp BP Pulse Ox
98.2 F 71 18 124/61 98
11/16/23 08:14 11/16/23 08:14 11/16/23 08:14 11/16/23 08:14 11/16/23 08:14
I&O
11/15/23 11/16/23 11/17/23
06:59 06:59 06:59
Intake Total 580 / 580 540 / 540
Output Total 150 / 150 175 / 175
Balance 430 / 430 365 / 365
Review of Systems
-
Respiratory: Reports No Symptoms
Cardiac: Reports No Symptoms
Abdomen/GI: Denies Abdominal Pain or Nausea
Physical Exam
-
General: Comfortable, Conversant and Appears Chronically Ill
Respiratory: Clear to Auscultation and Non Labored Respirations
Cardiac: Regular Rhythm and S1/S2; Negative Murmur or Rub
GI: Soft and Nontender
Rectal: Deferred by Provider
Neuro: Awake and Alert
Psych: Calm; Negative Intact Judgement/Insight
[2023-11-16] MEDS: HEPARIN 5000 UNITS SC ×2 (09:33→20:31)
[2023-11-16] MEDS: TRENTAL PO ×3 (09:35→21:06)
[2023-11-16] MEDS: REGLAN 5 MG IV ×2 (11:04→16:26)
--- NOTE | 2023-11-16 11:31 | CM ---
[facility] to have DME delivered today to pts home.
Son requested ambulance . Medical nec form completed. Ambulance to be set up for 11:00 and tomorrow 11/17/23. MD aware. Ambulance to address: [address] [facility] [address] [address] to enter..
MD aware to complete OOH DNR form.
Son set up care givers to start tomorrow at pts home.
IMM completed yesterday on chart.
PLAN Dc to home with Hospice
--- NOTE | 2023-11-16 15:37 | PN.CDI ---
CDI
- -
CDI:
Physician Documentation Request
Admit Date: 11/12/23 15:45
Dear Doctor Yobany,
Documentation in H&P includes the diagnosis of Severe protein calorie malnutrition.
No RD notes.
Patient presented to ED stating for the past week she 'cannot keep anything down', described as intermittent episodes of nonbloody vomiting associated with hunger but just not wanting to eat.
To ensure the quality of the medical record, based on the above information and the recognized standards for malnutrition , could you please verify in your progress notes which of the following responses best reflects the patient's nutritional
status:
Severe Malnutrition is present and is a clinical diagnosis (please provide additional support in the medical record)
Other level of malnutrition is present (Mild, Moderate or Severe)
Malnutrition was ruled out.
Other (please specify)
[place] Criteria (ACP Hospitalist 2017)
2 or more criteria must be present for either
non severe or severe malnutrition
Note that the criteria differs related to the
presence of an acute or chronic illness
Acute Illness Chronic Illness
Energy Intake Non Severe: <75% for >7 days Non Severe: <75% for >1 month
Severe: <50% for >5 days Severe: <75% for >1 month
Weight Loss Non Severe: 1-2% over 1 week Non Severe: 5% over 1 month
5% over 1 month 7.5% over 3 months
7.5% over 3 months 10% over 6 months
1 year N/A 20% over 1 year
Severe: >2% over 1 week Severe: >5% over 1 month
>5% over 1 month >7.5% over 3 months
>7.5% over 3 months >10% over 6 months
1 year N/A >20% over 1 year
Body Fat Non Severe: Mild Decrease Non Severe: Mild Loss
Severe: Moderate Decrease Severe: Severe Loss
Muscle Mass Non Severe: Mild Decrease Non Severe: Mild Loss
Severe: Moderate Decrease Severe: Severe Loss
Fluid Accumulation Non Severe: Mild Accumulation Non Severe: Mild Accumulation
Severe: Moderate to severe Severe: Moderate to severe
accumulation accumulation
Reduced [employer] Strength Non Severe: N/A Non Severe: N/A
Severe: Measurably reduced Severe: Measurably reduced
Additional criteria that can be used to Determine if Mild or Moderate Malnutrition (Merck Manual 2018)
Mild Moderate Severe
Albumin gm/dl <3.0 gm/dl <2.5 gm/dl <2.0 gm/dl
Pre Albumin mg/dl <15 gm/dl <10 mg/dl <5.0 mg/dl
BMI <18.5 <17 <16
Use of terms such as suspected, likely, concern for, or probable (associated with a specific diagnosis that is being evaluated, monitored, or treated as if it exists) are acceptable and can be coded in the inpatient setting, when documented at the
time of discharge.
Thank you,
Deneen Farias RN, BSN
CDI Specialist
tiger text
Please use your independent medical judgment in providing your response.
--- NOTE | 2023-11-16 15:51 | PN.CDI ---
CDI
- -
CDI:
Physician Documentation Request
Admit Date: 11/12/23 15:45
Dear Doctor Yobany,
Progress notes include a diagnosis of JESSICA on CKD4.
Creatinine resulted as follows:
Laboratory Tests
11/12/23 11/13/23 11/14/23
11:28 06:18 05:59
Creatinine 3.1 H 2.8 H 2.5 H
11/15/23
04:26
Creatinine 2.5 H
Criteria for JESSICA*
1 Increase in serum creatinine by > or = to 0.3 mg/dL (> or = to 26.5 micromol/L) within 48 hours, OR
2 Increase in serum creatinine to > or = to 1.5 times baseline, which is known or presumed to have occurred within 7 days, OR
3 Urine volume < 0.5 nL/kg/hour for six hours
Based on the above information and the recognized standard for JESSICA could you please verify this diagnoses is still accurate and reflective of the patient�s condition to ensure quality of the medical record.
Please clarify in the Progress Notes:
�JESSICA is/was present and is a clinical diagnosis based on (please include this additional support in the medical
record)
�After study JESSICA has been ruled out
�Other
Use of terms such as suspected, likely, concern for, or probable (associated with a specific diagnosis that is being evaluated, monitored, or treated as if it exists) are acceptable and can be coded in the inpatient setting, when documented at the
time of discharge.
Thank you,
Deneen Farias RN, BSN
CDI Specialist
tiger text
Please use your independent medical judgment in providing your response.
[2023-11-16 15:57] VITALS: BP 134/53
[2023-11-16 23:04] VITALS: BP 134/71
[2023-11-17 07:20] VITALS: BP 121/64
[2023-11-17] MEDS: REGLAN 5 MG IV ×2 (07:34→10:22)
[2023-11-17] MEDS: TRENTAL PO (07:36)
[2023-11-17] MEDS: HEPARIN SC (07:36)
--- NOTE | 2023-11-17 10:47 | W.PN.HOSP.TC ---
Addendum entered and electronically signed by Galo Emmanuel MD 11/19/23 13:22:
JESSICA on CKD4 remains a valid diagnosis
Original Note:
Today's Communication/Plan
-
d/c
Assessment / Plan
Assessment / Plan
Gen: NAD, Awake and alert, appears chronically ill
Eyes: EOMI, PERRLA, no scleral icterus.
Neck: supple.
CV: RRR, +S1/S2, no m/r/g.
Resp: CTAB, no rales, wheezes, or rhonchi.
Skin: No rashes.
Neuro: CN 2-12 intact, non-focal.
Psych: Normal mood and affect.
Pt being discharge today to home hospice.
JESSICA on CKD4
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
N/V, loss of appetite, poor PO intake likely due to clinical deconditioning from metastatic ovarian cancer with peritoneal carcinomatosis:
-Cr improved to 2.5 from 3.1 on admission; baseline Cr 2.4 - 2.7
-Na improved to 130 from 127 on admission
-was on IVFs
-reglan started due to poor PO intake
Metastatic ovarian cancer with peritoneal carcinomatosis:
recent CT A/P with progression of disease
currently not on cancer directed therapy
Onc saw in c/s
-d/c to home hospice
# Hypoglycemia
-from poor oral intake
-check BG if symptomatic
Other, inactive problems:
Interstitial fibrosis
Osteoarthritis
Coronary artery disease
Total time spent on d/c = 31 min. This included today's physical exam, progress note, review of laboratory and diagnostic data, preparation of discharge documents and prescriptions, and discussions about the pt's hospital course and discharge plan
with the patient and other emergency medical service coordinator involved in the patient's care.
Anticipated Discharge: Today
Subjective/Interval History
-
Date of Service: November 17, 2023
Objective Data
-
Vital Signs:
Vital Signs
Temp Pulse Resp BP Pulse Ox
97.8 F 74 16 121/64 98
11/17/23 07:20 11/17/23 07:20 11/17/23 07:20 11/17/23 07:20 11/17/23 07:20
I&O
11/16/23 11/17/23 11/18/23
06:59 06:59 06:59
Intake Total 540 / 540 200 / 200
Output Total 175 / 175 550 / 550
Balance 365 / 365 -350 / -350
--- NOTE | 2023-11-18 13:00 | W.DCSUMMARY ---
Discharge Summary
Discharge Data
Date of Admission: 11/12/23
Date of Discharge: 11/17/23
-
Pending Results: No
Hospital Course
Primary diagnoses:
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
Metastatic ovarian cancer with peritoneal carcinomatosis
Hypoglycemia due to poor oral intake
Secondary diagnoses:
Severe protein calorie malnutrition
Interstitial fibrosis
Osteoarthritis
Coronary artery disease
Consultants:
Oncology
Imaging:
OBST series: No acute cardiopulmonary process. No intestinal obstruction or free air.
Hospital course: 88-year-old female who presented with chief complaint of weakness as outlined in the H&P done on admission. She had had nearly a week of nausea and vomiting prior to admission she had recent weight loss. On admission the patient's
sodium was 127 and improved to 130 with IV fluids. Serum osmolality was normal at 285. Urine sodium was less than 5, urine osmolality was 426. Patient's creatinine was 3.1 on admission and improved to 2.5 with IV fluids. While hospitalized the
patient was seen by oncology. The patient decided to transition to hospice. She was discharged to home to set up home hospice.
Discharge Plan
-
Patient Disposition: Home with Hospice
Discharge Diagnosis/Procedures: Metastatic ovarian cancer with peritoneal carcinomatosis
Condition: Good
Diet: As tolerated
Activity: As tolerated
Driving Restrictions: No driving
Other Services: Hospice
Referrals:
Imani Orozco MD [Family Provider] - in less than 1 week
Prescriptions:
New
metoclopramide HCl [Reglan] 10 mg tablet
10 mg PO Q6H PRN (Reason: nausea and vomiting) Qty: 30 0RF
Discontinued
loperamide 2 MG capsule
2 mg PO TID
sodium bicarbonate 650 MG tablet
650 mg PO BID
cholecalciferol (vitamin D3) 2,000 UNITS tablet
1,000 units PO DAILY
multivitamin with folic acid [Tab-A-Jay] 1 TABLET tablet
1 tab PO QPM
loratadine 10 MG tablet
10 mg PO DAILYPRN PRN (Reason: allergies)
acetaminophen [Tylenol Arthritis Pain] 650 MG tablet extended release
650 mg PO BID
sodium chloride 1 GRAM tablet,soluble
0.5 g PO QID
pentoxifylline 400 mg Tablet Extended Release
400 mg PO TID
Probiotic 3 billion cell Capsule
3,000 mmu cells PO DAILY
ondansetron 4 mg tablet,disintegrating
4 mg PO Q8HPRN PRN (Reason: nausea and vomiting)
Discharge Orders:
Discharge Patient (As Directed); Ordered 11/17/23
Ordered By: Galo Emmanuel
Discharge Date and Time
Discharge Date/Time: 11/17/23 11:15
Print Language: CANADIAN
--- NOTE | 2023-11-19 11:08 | PN.CDI ---
CDI
- -
CDI:
Physician Documentation Request
Admit Date: 11/12/23 15:45\\
Dear Doctor Cholo,
Progress notes include a diagnosis of JESSICA on CKD4.
Creatinine resulted as follows:
Laboratory Tests
11/12/23 11/13/23 11/14/23
11:28 06:18 05:59
Creatinine 3.1 H 2.8 H 2.5 H
11/15/23
04:26
Creatinine 2.5 H
Criteria for JESSICA*
1 Increase in serum creatinine by > or = to 0.3 mg/dL (> or = to 26.5 micromol/L) within 48 hours, OR
2 Increase in serum creatinine to > or = to 1.5 times baseline, which is known or presumed to have occurred within 7 days, OR
3 Urine volume < 0.5 nL/kg/hour for six hours
Based on the above information and the recognized standard for JESSICA could you please verify this diagnoses is still accurate and reflective of the patient�s condition to ensure quality of the medical record.
Please clarify in the Progress Notes:
�JESSICA is/was present and is a clinical diagnosis based on (please include this additional support in the medical
record)
�After study JESSICA has been ruled out
�Other
Use of terms such as suspected, likely, concern for, or probable (associated with a specific diagnosis that is being evaluated, monitored, or treated as if it exists) are acceptable and can be coded in the inpatient setting, when documented at the
time of discharge.
Thank you,
Deneen Farias RN, BSN
CDI Specialist
tiger text
Please use your independent medical judgment in providing your response.
*Source: Kidney Disease: Improving Global Outcomes (KDIGO) 2012
== END 2023-11-17 11:15 | disposition hospice, home (50) | DRG 643 ==
LOC: 4 EAST ACU 15:45
PROVIDERS: Internal Medicine; ADMITTING PHYSICIAN Internal Medicine; EMERGENCY PHYSICIAN Emergency Medicine; FAMILY PHYSICIAN Family Medicine; OTHER PHYSICIAN Internal Medicine Hematology & Oncology
DX: E22.2 Syndrome of inappropriate secretion of antidiuretic hormone (principal); E43 Unspecified severe protein-calorie malnutrition; N17.9 Acute kidney failure, unspecified; E87.20 Acidosis, unspecified; C78.6 Secondary malignant neoplasm of retroperitoneum and peritoneum; N18.4 Chronic kidney disease, stage 4 (severe); J44.9 Chronic obstructive pulmonary disease, unspecified; M19.90 Unspecified osteoarthritis, unspecified site; I25.10 Atherosclerotic heart disease of native coronary artery without angina pectoris; E86.9 Volume depletion, unspecified; Z51.5 Encounter for palliative care; E16.2 Hypoglycemia, unspecified; J84.10 Pulmonary fibrosis, unspecified; I12.9 Hypertensive chronic kidney disease with stage 1 through stage 4 chronic kidney disease, or unspecified chronic kidney disease; Z96.651 Presence of right artificial knee joint; Z66 Do not resuscitate; Z60.2 Problems related to living alone; Z87.891 Personal history of nicotine dependence; Z85.43 Personal history of malignant neoplasm of ovary; Z87.442 Personal history of urinary calculi; Z87.440 Personal history of urinary (tract) infections; Z68.22 Body mass index [BMI] 22.0-22.9, adult; Z88.6 Allergy status to analgesic agent; Z91.041 Radiographic dye allergy status; Z88.2 Allergy status to sulfonamides; Z91.048 Other nonmedicinal substance allergy status
CPT/HCPCS: 36591; 74022; 80048; 80053; 82533; 82962; 83735; 83930; 83935; 84300; 84443; 85025; 85027; 86304; 93005; 99285